=== PATIENT | male | born 1950 | race Caucasian/White ===

== ENCOUNTER 2017-01-24 12:42 | Inpatient (IN) | payer MEDICARE, MEDICAID ==
[~2017-01-24] VITALS: Ht 180.3 cm; Wt 122.5 kg
--- NOTE | ~2017-01-24 | WRIGHTHP ---
[place], [place] PATIENT HISTORY AND PHYSICAL EXAM NAME[id number] #: [id number] ROOM: 315 DOCTOR: SUKUMAR CAMILO MD BIRTHDATE: [birth year] DOS: 01/25/2017 CHIEF COMPLAINT: "What the hell is going on here, you know there is something funny here, I need to get the hell out of here." HISTORY OF PRESENT ILLNESS: This is a 66-year-old white male who was sent here on involuntary basis from [place], [place]. The patient apparently wound up in the [facility] there and was found to be acutely delusional and very agitated. He was yelling and screaming at staff, stating that people have deliberately conspired against him. They have hidden his money and are attempting to hurt him. Since his admission here, he has been exhibiting similar behavior. He is very volatile and on edge. He has been demanding to be let out of the hospital, he has been very suspicious of everybody and refusing medications. He did take his medications and then subsequently spit them out. Nurses did have to intervene and reattempt to medicate him. Due to the significant amount by paranoia and mood lability, he is to be detained here to rule out any organic factors, to stabilize on medication, to engage in individual and jimenez milieu activity, and return to at least restrictive environment when psychiatrically stable. PAST MEDICAL HISTORY: Remarkable for hypertension, hyperlipidemia, diabetes, coronary artery disease, hypothyroidism, and a history of several myocardial infarctions. MENTAL STATUS: The patient is alert and oriented to person, place, and very approximate to time. Mood is very labile. Affect is angry and irritable. He is extremely paranoid and delusional. There does not seem to be the presence of auditory or visual hallucinations; however, he is so guarded and so uncooperative, it is very difficult to obtain a significant mental status due to his lack of cooperation. He does seem to process information relatively well and his memory does seem to be relatively intact. DIAGNOSIS: Schizoaffective disorder. PLAN: I will discontinue his Remeron. I have already discontinued Wellbutrin. My fear is that any of these antidepressants are fueling some of his manic type behavior. I started him on Latuda 40 mg at bedtime. I will increase this to 80 mg at bedtime and augment with Invega 6 mg in the a.m. At this point in time, the severity of his psychosis is such that I feel justified in utilizing 2 antipsychotics. Given the fact that he is being episodically noncompliant with his medication, I may need to discontinue the Latuda and ultimately switch to Invega Sustenna to improve compliance. We will attempt at best to engage him in individual and jimenez milieu activity and then determine the least restrictive environment to discharge him when stable. [place], [place] PATIENT HISTORY AND PHYSICAL EXAM NAME: LIZBETH VELÁZQUEZ UNIT #: [id number] ROOM: [facility] DOCTOR: SUKUMAR CAMILO MD BIRTHDATE: [birth year] SUKUMAR CAMILO MD CM:HISPHYS:PATIENT HISTORY AND PHYSICAL EXAMINATION 5 SUKUMAR CAMILO MD 01/25/17 0843 interface
--- NOTE | ~2017-01-24 | CON ---
[place], [place] REPORT OF CONSULTATION NAME: LIZBETH VELÁZQUEZ [facility] #: [id number] UNIT #: [id number] ROOM: 315 DOCTOR: ZARINA ALVARADO ED.D (LEATHA) BIRTHDATE: [birth year] DOS: HISTORY OF PRESENT ILLNESS: The patient is a 66-year-old male referred by Dr. Taylor for competency evaluation. At the present time, this patient is on the Behavioral Health Unit at [facility]. He is single and has never been and presently lives alone in [place], [place]. His mother is still living and he also has a sister who is quite involved in his care. Unfortunately, his mother is 84 years old and is having difficulty with the patient . This patient's medical history is pertinent for delusional disorder, hypertension, diabetes mellitus, coronary artery disease, hypothyroidism, schizoaffective disorder and intellectual disability. His medications include Latuda, insulin, Invega, Synthroid, Plavix, metoprolol, Geodon, Rozerem and Ativan. He denies any substance abuse issues. This patient was awake, alert and oriented to person and place. He was not oriented to time, however. He denies any suicidal ideation or plan. His short and long-term memory are both mildly impaired. His insight, judgment and concentration are very poor. This patient was referred for competency evaluation. At the present time, I believe this patient is not really competent to make informed healthcare decisions or understand the risks and benefits of treatment. He apparently had been living alone with some case management services, but he returns. The case management services ____ when they came to his home. He was not taking his medications and his medical condition was quite precarious. It was dangerous for him to live alone. He does not understand that he is unable to take care of his needs and is not administering his medications appropriately. In my opinion, this patient does need a guardianship established, although his mother rather does have power of health care attorney for healthcare, but the patient refuses any intervention. DIAGNOSES: 1. Schizoaffective disorder. 2. Intellectual disability -- moderate. 3. 18.0 (F 72). Thank you very much for this consult. ZARINA WALKER, ED.D CM:CONSTR:REPORT OF CONSULTATION 1150 01/31/17 2526 interface SUKUMAR TAYLOR MD
--- NOTE | ~2017-01-24 | PR ---
[place], [place] PROGRESS NOTE NAME: [id number] UN[facility] #: [id number] ROOM: 315 DOCTOR: SUKUMAR CAMILO MD BIRTHDATE: [birth year] DOS: 01/29/2017 CHIEF COMPLAINT: "I didn't sleep last night, I tossed and turned." SUMMARY OF THE VISIT: The patient was interviewed in his room as he rested quietly in bed. He was bright and pleasant this morning with me and engaged readily. He smiled and reported that he is still not sleeping and that this is a source of concerned for him. He has trouble falling asleep and staying asleep and tends to toss and turn throughout the night. Mood seems to be stabilizing and that he does seem to be much more pleasant and cooperative and the mood lability and angry that were so evident seem to be dissipating. He is tolerating the combination of the Invega and Latuda well. I am going to maintain the two antipsychotics at this point given the extreme mood lability and agitation that he exhibited early on. I may ultimately taper and discontinue one, but for now we will maintain both. I see no extrapyramidal symptoms, tardive dyskinesia or any other side effects from the medicines themselves. MENTAL STATUS: He is alert and oriented with some time gaps. Mood does seem to be trending towards euthymia. Affect is more appropriate. There are no symptoms of moisés or hypomania. There are no voiced paranoia, delusions or other psychotic symptoms. Memory has mild gaps. PLAN: Given his sensitivity to antidepressants, I will go ahead and order him Rozerem as a sleep aid. I may have to utilize something a little stronger like Ambien, but we will start with this and monitor, engage in individual and jimenez milieu activity, returning to the least restrictive environment when psychiatrically stable. SUKUMAR CAMILO MD CM:PNTRANS [id number] SUKUMAR CAMILO MD 01/29/17 1242 interface
--- NOTE | ~2017-01-24 | PR ---
[place], [place] PROGRESS NOTE NAME: [facility]Z [id number] UN[facility] #: [id number] ROOM: 315 DOCTOR: SUKUMAR CAMILO MD BIRTHDATE: [birth year] DOS: 01/26/2017 CHIEF COMPLAINT: "I didn't sleep too well last night, is it time for breakfast?" SUMMARY OF THE VISIT: The patient was interviewed as he rested quietly in bed with the IV infusing in his arm. The patient engaged readily in conversation this morning, which is in neal contrast to yesterday when he was very volatile and paranoid. He was pleasant and bright upon approach, reporting that he did have trouble sleeping, both difficulty falling asleep and sleep continuity disturbance. He did state, however, that he woke up hungry and is ready to start the day. He was much more compliant and engaging. There was no agitation. There was no mood lability and there was no voiced paranoia this morning. Nurses report he has been compliant with his psychotropic regimen. I am not seeing any somnolence, sedation, extrapyramidal symptoms or tardive dyskinesia. MENTAL STATUS EXAMINATION: This morning, he is alert and oriented to person, place, I did not fully test time. Mood does seem to be trending towards euthymia. Affect is more appropriate. There is no symptom suggestive of hypomania or moisés. There are no overt auditory or visual hallucinations. No delusions were voiced. No paranoia seems present. Memory seems relatively intact. PLAN: I will maintain his psychotropic regimen that includes Latuda 80 mg at bedtime and Invega 6 mg in the morning. Screening examinations revealed him to have a low vitamin D level of 20.9. He is already receiving vitamin D 400 international units daily. I will discontinue this in lieu of vitamin D 50,000 international units weekly. We will engage in individual and jimenez milieu activity. We will explore possible placement options for him returning to the least restrictive environment when psychiatrically stable. SUKUMAR CAMILO MD CM:PNTRANS SUKUMAR CAMILO MD 01/26/1733 interface
--- NOTE | ~2017-01-24 | PR ---
[place], [place] PROGRESS NOTE NAME: [id number] #: [id number] ROOM: 315 DOCTOR: SUKUMAR CAMILO MD BIRTHDATE: [birth year] DOS: 01/30/2017 CHIEF COMPLAINT: "Yes, I think I did sleep better, I'm a little tired this morning though." SUMMARY OF THE VISIT: The patient was interviewed as he rested quietly in bed. He reports that he slept better through the night, did get up and have breakfast and decided to lay back down now. He was in a pleasant mood and joked with me and smiled. He is fixated, however, ongoing home and it is unclear if this is the best tract for him given the fact that he was found in conditions. He seems to be tolerating the medicines well other than some mild morning somnolence. MENTAL STATUS EXAMINATION: There is a definite trend in improvement. He is much more euthymic and much more pleasant. He engages readily in conversation, is spontaneously and even able to joke. There is no hypomania or moisés. There are no auditory or visual hallucinations noted. Short-term memory has mild gaps, otherwise he is intact. PLAN: I will maintain the current psychotropic regimen. I will renew his Ativan in case he requires it. We will continue to explore alternative placements, discharging him when stable. SUKUMAR CAMILO MD CM:PNTRANS [id number] SUKUMAR CAMILO MD 01/30/17 1407 interface
--- NOTE | 2017-01-24 16:42 | NUR ---
CALL PLACED TO [facility] AT [phone] TO VERIFY MEDICATION LIST AT THIS TIME.
--- NOTE | 2017-01-24 16:43 | NUR ---
SUKHDEV AT [facility] DRUG [facility] THEY WILL FAX MED LIST TO THE UNIT.
--- NOTE | 2017-01-24 17:00 | NUR ---
HOME MEDICATION LIST REVIEWED WITH DR. CAMILO VIA TELEPHONE, NEW ORDERS RECIEVED AND VERIFIED.
[2017-01-24 17:07] VITALS: BP 138/71
[2017-01-24] MEDS ORDERED: WELLBUTRIN XL300 MG PO (17:12)
[2017-01-24] MEDS ORDERED: TRAZODONE50 MG PO (17:13)
[2017-01-24] MEDS ORDERED: TRAD5TAB1 PO (17:13)
[2017-01-24] MEDS ORDERED: VITAMIN D2400 UNIT PO (17:13)
[2017-01-24] MEDS ORDERED: PLAVIX75 M1 PO (17:14)
[2017-01-24] MEDS ORDERED: METFORMIN500 MG PO (17:15)
[2017-01-24] MEDS ORDERED: POLY-IRON 150150 MG PO (17:15)
[2017-01-24] MEDS ORDERED: SEROQUEL25 MG PO (17:16)
[2017-01-24] MEDS ORDERED: LOPRESSOR100 M1 PO (17:16)
[2017-01-24] MEDS ORDERED: LIPITOR80 MG PO (17:16)
[2017-01-24] MEDS ORDERED: LEVOTHYROXINE100 MC1 PO (17:17)
--- NOTE | 2017-01-24 19:06 | NUR ---
LIZBETH VELÁZQUEZ a 66 year old M admitted via stretcher from the ADMITTING as a emergency 72 hr. hold admission. Arrived on unit at . ALLERGIES: . Vital signs are: 97.6-80-18 138/71 The client signed the following forms with stated understanding: Authorization For The Release of Medical Information, Clothing List, Consent and Release Forms/Receipt of Rights, Acknowledgement of Advance Directive Information, Behavioral Health Consent Form, and Informed Consent of Medications. [facility] A search was conducted and hazardous articles were removed. Client was oriented to the unit. AFNY JAMA
--- NOTE | 2017-01-24 19:08 | NUR ---
Dr. Culver was notified of consultation @ Hospitalist #1 on this date @ this time. Consultation is for medical management.
--- NOTE | 2017-01-24 20:11 | NUR ---
DR AUSTIN ON UNIT TO SEE PT FOR MEDICAL CONSULT,
--- NOTE | 2017-01-24 22:00 | NUR ---
REFUSED VITAL SIGNS & HS SNACK. MOOD IS LABILE RANGING FROM IRRITABLE & SARCASTIC WITH PROFANITY & NAME CALLING TO VERY ELATED WITH INAPPROPRIATE LAUGHTER. QUESTIONABLE AUDITORY HALLUCINATIONS. PT WOULD NOT ADMIT OR DENY BUT RESPONDED SARCASTICALLY. PARANOID & GRANDIOSE DELUSIONS PRESENT & PT STATED HE IS WITH THE SECRET SERVICE & WE ARE TRYING TO FIND OUT INFORMATION FROM HIM. HAS BEEN COMPLIANT WITH HS MEDS BUT MOUTH CHECKS WERE COMPLETED PT SPIT ONE IN HIS HAND & STATED THE WATER TASTES FUNNY & IS POISONED.
--- NOTE | 2017-01-25 06:19 | NUR ---
PT HAS BEEN OBSERVED ON Q 15 MIN CHECKS & HAS SLEPT QUIETLY THROUGHOUT THE SHIFT PAST 2200 WITH 1 BRIEF AWAKENING TO GO TO THE BATHROOM.
--- NOTE | 2017-01-25 07:00 | NUR ---
PT VULGAR WITH STAFF THIS AM WITH NAME CALLING. POSTURING AT STAFF WITH FISTS CLENCHED & YELLING "I'M FROM [facility]".
[2017-01-25 07:34] LABS: BASO # 0.1 10*3/uL (0.0-0.1); EOS # 0.6 10*3/uL (0.0-0.4); EOS % 5.6 % (1.0-4.0); HEMATOCRIT 45.3 % (42.0-52.0); HEMOGLOBIN 15.2 g/dl (14.0-18.0); LYMPH # 2.6 10*3/uL (1.3-4.4); LYMPH % 26.3 % (27.0-41.0); MEAN CELL VOLUME 90.4 fl (80.0-94.0); MEAN CORPUSCULAR HGB 30.3 pg (27.0-31.0); MEAN CORPUSCULAR HGB CONC 33.6 g/dl (33.0-37.0); MEAN PLATELET VOLUME 10.1 fl (9.6-12.3); MONO % 10.3 % (3.0-9.0); NEUT # 5.6 10*3/uL (2.3-7.9); NEUT % 56.5 % (47.0-73.0); PLATELET COUNT AUTOMATED 230 10*3/uL (130-400); RED BLOOD COUNT 5.01 10*6/uL (4.50-5.90); RED CELL DISTRI WIDTH 12.3 % (0-14.5)
[2017-01-25 07:50] LABS: ALBUMIN 2.7 gm/dl (3.1-4.5); CREATININE 2.17 mg/dL (0.70-1.30); POTASSIUM 3.7 mmol/L (3.5-5.1); TOTAL PROTEIN 6.2 gm/dL (6.4-8.2)
[2017-01-25 07:58] LABS: THYROID STIM HORMONE (HS) 15.3 uIU/ml (0.358-4.75)
--- NOTE | 2017-01-25 08:59 | NUR ---
DR. HAMILTON NOTIFIED OF ABNORMAL LABS VIA PHONE.
[2017-01-25 09:26] VITALS: BP 125/76
--- NOTE | 2017-01-25 09:41 | NUR ---
RETURN CALL PLACED TO DR. HAMILTON, MADE AWARE PT HAS DOCUMENTED DX OF CKD STAGE 3 FROM HOSPITAL RECORDS FROM [facility] IN [place]. REVIEWED LAB RESULTS OF CR 1.98 ON 01/21/17 AND CR 1.74 ON 01/24/17, DR. HAMILTON STATES TO CANCEL IVF BOLUS, URINE STUDIES, RENAL ULTRASOUND, AND PHYSICIANS CONSULT FOR DR. BURCH. DR. HAMILTON STATES TO RUN IVF AT 80ML/HR CONTINUOUS. DR. HAMILTON HAD DISCONTINUED PT'S METFORMIN AND TRADJENTA, DR. PERKINS STATES TO KEEP THESE MEDICAIONS DISCONTINUED AND TO PLACE PT ON HOSPITALIST SLIDING SCALE NUMBER 1 WITH AC/HS BLOOD SUGAR CHECKS. ORDERS REPEATED BACK AND VERIFIED. WITNESSED BY MOLLY NAVARRO.
[2017-01-25 09:44] LABS: VITAMIN D, 25-HYDROXY 20.9 ng/mL (30-100)
--- NOTE | 2017-01-25 10:01 | NUR ---
CECILIO CRUZ FROM 4TH HERE AND STARTED IV 22G IN LEFT FA.
--- NOTE | 2017-01-25 13:38 | NUR ---
Patient refused to participate during group. Stated "I don't feel good." Patient encouraged to attend group this afternoon.
--- NOTE | 2017-01-25 15:39 | NUR ---
PT did not attend RT group/trivia this afternoon. PT was in his room and refused
--- NOTE | 2017-01-25 19:00 | NUR ---
SHIFT CHART CHECK COMPLETED.
[2017-01-25 20:00] VITALS: BP 136/76
--- NOTE | 2017-01-25 21:51 | NUR ---
TREATMENT TEAM WAS HELD TO DISCUSS CARE WITHTHE FOLLOWING: DR. CAMILO, RNs, AT, SW, AND MEDICAL STUDENT. DR CAMILO REQUESTING BETTER HISTORY. SW WILL LOOK INTO THIS AND CALL FAMILY.
--- NOTE | 2017-01-25 22:01 | NUR ---
ISIS RECEIVED COY OF ERIN FUENTES. ISIS GAVE NURSE GUERLINE COPY OF ERIN PAPERS. ISIS LET LISET MOTHER KNOW PAPERS WEER RECEIVED.
--- NOTE | 2017-01-25 23:00 | NUR ---
NSS 0.9% INFUSING IN IV SHORT CATHETER AT 80ML/HR WITHOUT DIFFICULTY. IV SITE WITH NO REDNESS, ELEVATED TEMPERATURE, OR EDEMA. LAB WORK TO BE DRAWN IN AM
--- NOTE | 2017-01-25 23:58 | NUR ---
URINE SPECIMEN OBTAINED. URINE OBTAINED VIA CLEAN CATCH. URINE YELLOW WITH OUTPUT OF 250ML. NO COMPLAINTS OF DYSURIA
[2017-01-26 00:46] LABS: BILIRUBIN NEGATIVE (NEGATIVE); BLOOD NEGATIVE (NEGATIVE); CLARITY CLEAR (CLEAR); COLOR YELLOW (YELLOW); GLUCOSE 1+ (NEGATIVE); KETONE NEGATIVE (NEGATIVE); LEUKO ESTERASE 2+ (NEGATIVE); NITRITE NEGATIVE (NEGATIVE); UROBILINOGEN 0.2 E.U./dl (0.2-1.0)
[2017-01-26 01:04] LABS: WBC 16-20 wbc/hpf (0-5)
[2017-01-26 01:05] LABS: BACTERIA TRACE
--- NOTE | 2017-01-26 04:11 | NUR ---
24 HR chart check completed.
--- NOTE | 2017-01-26 04:13 | NUR ---
B: AGITATION/CONFUSION I: 1:1, THERAPEUTIC COMMUNICATION, GOAL ORIENTED R: PATIENT WISHES THE DOG WOULD BE QUIET P: HELP TO FIND COPING SKILLS TO DECREASE AGITATION, REORIENT TO PERSON, PLACE, TIME, AND SITUATION, PARTICIPATE IN GROUPS
--- NOTE | 2017-01-26 06:39 | NUR ---
Q 15 MINUTE CHECKS MAINTAINED. PATIENT SLEPT 4 HOURS THROUGHOUT SHIFT
[2017-01-26 07:53] VITALS: BP 135/76
[2017-01-26 07:54] LABS: BASO # 0.1 10*3/uL (0.0-0.1); BASO % 0.9 % (0.0-1.0); EOS # 0.5 10*3/uL (0.0-0.4); EOS % 5.2 % (1.0-4.0); HEMATOCRIT 40.4 % (42.0-52.0); LYMPH # 2.9 10*3/uL (1.3-4.4); LYMPH % 30.5 % (27.0-41.0); MEAN CELL VOLUME 90.2 fl (80.0-94.0); MEAN CORPUSCULAR HGB 31.3 pg (27.0-31.0); MEAN CORPUSCULAR HGB CONC 34.7 g/dl (33.0-37.0); MEAN PLATELET VOLUME 10.4 fl (9.6-12.3); MONO # 0.8 10*3/uL (0.1-1.0); MONO % 8.3 % (3.0-9.0); NEUT # 5.1 10*3/uL (2.3-7.9); NEUT % 54.6 % (47.0-73.0); PLATELET COUNT AUTOMATED 230 10*3/uL (130-400); RED BLOOD COUNT 4.48 10*6/uL (4.50-5.90); RED CELL DISTRI WIDTH 12.6 % (0-14.5); WHITE BLOOD COUNT 9.4 10*3/uL (4.8-10.8)
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
[2017-01-26 08:26] LABS: CREATININE 1.83 mg/dL (0.70-1.30); MAGNESIUM 1.3 mg/dL (1.5-2.1); PHOSPHOROUS 2.6 mg/dL (2.5-4.9); POTASSIUM 3.3 mmol/L (3.5-5.1)
--- NOTE | 2017-01-26 09:39 | NUR ---
Complex Care Nurse Note: Kevin from [facility], called to give us their phone and fax numbers so that patient can resume services with them upon discharge. . He was receiving daily nursing care every evening for blood sugars, but can receive more visits and also passport through their company.
--- NOTE | 2017-01-26 18:09 | NUR ---
PT IV INFILTRATED. IV REMOVED. NURSE EVALUTING PT FOR NEW SITE. PT REFUSED. ICU NURSE UP ON THE FLOOR TO ASSESS PT IV SITE
--- NOTE | 2017-01-26 19:17 | NUR ---
TREATMENT TEAM WAS HELD TO DISCUSS CARE WITHTHE FOLLOWING: DR. CAMILO. YUKO, RNs, AND MEDICAL STUDENT. DR. CAMILO RECOMENDED PALCEMENT FOR REHAB THEN ASSISTED LIVING. Yuko INFORMED DR THAT FAMILY AGREED WITH PLACEMENT AND WOULD LIKE PT TO EVETUALLY GOTO ASSISTED LIVING IN [facility]. . YUKO WILL COMPLETE PASRR.
--- NOTE | 2017-01-26 19:19 | NUR ---
ISIS COMPLETED ASSESSMENT WITH [facility]. FAMILY WANTS PT PLACED IN ASSISTD LIVING. ISIS EPLAINED THAT ASSISTED LIVING PLACEMENT TAKES TOO LONG AND PT WOULD GO TO SKILLED CARE THEN ASSISTED LIVING. FAMILY AGREED WITH DISCHARGE PLAN. FAMILY WOULD LIKE PT TO SHAVE [place] AND GET A HAIR CUT. SW WITH TALK WITH PT ABOUT CLEANING UP HIS PERSONAL APPERANCE.
--- NOTE | 2017-01-26 19:21 | NUR ---
SW COMPLETED PASRR AND ASKED AGRICULTURAL AGENT TO FAX IT TO [facility]. SW GAVE REFERRALS FOR UNIT COORDIANTOR TO FAX TO FACILITIES.
[2017-01-26 19:37] VITALS: BP 107/49
--- NOTE | 2017-01-26 20:00 | NUR ---
BLOOD PRESSURE RESULT OF 102/49. RECHECKED [facility] BLOOD PRESSURE WITH RESULT OF 120/68
--- NOTE | 2017-01-26 22:10 | NUR ---
CLIENT MEDICATION COMPLAINT. NSS 0.9% INFUSING AT 80ML/HR IN RIGHT WRIST SHORT PERIPHERAL CATHERTER WITHOUT DIFFICULTY. IV SITE WITH NO EDEMA, INCREASED TEMPERATURE, OR REDDNESS AT IV SITE. CONTINUES ON BACTRIM SS WITH NO COMPLAINTS OF DYSURIA.
--- NOTE | 2017-01-27 02:07 | NUR ---
24 HR chart check completed.
--- NOTE | 2017-01-27 04:46 | NUR ---
B: CONFUSION/AGITATION I: THERAPEUTIC COMMUNICATION, GOAL ORIENTED, 1:1 R: PATIENT GETTING UPSET ABOUT INSULIN AND COVERAGE P: MEDICATION COMPLIANCE AND REVIEWED SLIDING SCALE COVERAGE WITH PATIENT, HELP TO FIND COPING SKILLS TO DECREASE AGITATION
--- NOTE | 2017-01-27 06:14 | NUR ---
Q 15 MINUTE CHECKS MAINTAINED. SLEPT >8 HOURS THROUGOUT SHIFT
[2017-01-27 08:03] VITALS: BP 138/78
--- NOTE | 2017-01-27 08:24 | NUR ---
PHYSICAL THERAPY Patient evaluated on 3, full evaluation to follow. Continue with PT as per plan of care with fall, unit three and decreased safety/balance precautions. Assisted living versus SNF for impaired mobility in order to return to (I) PLOF. PAtient is moderate complexity via chart review, tests and evaluation: [id number]. Thank you for this referral. Kenzie Luz,PT
--- NOTE | 2017-01-27 11:39 | NUR ---
PT refused to attend RT Group/excerse this morning. Tried to encourage PT but PT just continued to refuse
--- NOTE | 2017-01-27 15:35 | NUR ---
TREATMENT TEAM WAS HELD WITH THE FOLLOWING TO DISCUSS CARE: DR. CAMILO, MEDICAL STUDENT, RN, AT, SW. SW SUBMITTED PASRR AND REFERRALS WERE MADE.
--- NOTE | 2017-01-27 15:51 | NUR ---
PT was in the same room as RT Group/Riddles,Choices but did not participate. encouraged PT numerous times throughout group to join but PT continually refused.
[2017-01-27 20:24] VITALS: BP 135/63
--- NOTE | 2017-01-28 04:05 | NUR ---
DR. HINTON MADE AWARE OF PT NOT HAVING LAB WORK REPEATED SINCE 01/26/17 WITH IV 0.9% NS RUNNING 80 ML HR AND 5TH BAG COMPLETE. ORDERS OBTAINED TO REPEAT CBC AND CMP AND TO HOLD IVF UNTIL LABS COULD BE REVIEWED. ORDERS VERIFIED BY SECOND NURSE SHAHAB SNIDER RN.
--- NOTE | 2017-01-28 05:38 | NUR ---
PT AWOKE THROUGHOUT NIGHT ON MULTIPLE OCASSIONS FOR URINATION. SLEPT 6 HOURS. IV SITE TO RIGHT WRIST ASYMPTOMATIC. IV INFUSION ON HOLD AT 0400 PER . SITE SECURED WITH TAPE. PT MEDICATION COMPLIANT WITH OUT COAXING. CONTINUES TO BE SUSPICIOUS AND PARINOID AT TIMES. REPORT BUILT WITH PT BY 1:1. SEE FLOW SHEET FOR SPECIFIC MONITORING.
[2017-01-28 07:30] LABS: BASO # 0.1 10*3/uL (0.0-0.1); EOS # 0.5 10*3/uL (0.0-0.4); EOS % 6.2 % (1.0-4.0); HEMATOCRIT 41.7 % (42.0-52.0); LYMPH # 2.3 10*3/uL (1.3-4.4); LYMPH % 30.4 % (27.0-41.0); MEAN CELL VOLUME 90.5 fl (80.0-94.0); MEAN CORPUSCULAR HGB 30.4 pg (27.0-31.0); MEAN CORPUSCULAR HGB CONC 33.6 g/dl (33.0-37.0); MEAN PLATELET VOLUME 10.6 fl (9.6-12.3); MONO # 0.8 10*3/uL (0.1-1.0); MONO % 10.2 % (3.0-9.0); NEUT # 3.9 10*3/uL (2.3-7.9); NEUT % 51.7 % (47.0-73.0); PLATELET COUNT AUTOMATED 207 10*3/uL (130-400); RED BLOOD COUNT 4.61 10*6/uL (4.50-5.90); RED CELL DISTRI WIDTH 12.5 % (0-14.5); WHITE BLOOD COUNT 7.6 10*3/uL (4.8-10.8)
[2017-01-28 07:45] LABS: ALBUMIN 2.6 gm/dl (3.1-4.5); CREATININE 1.63 mg/dL (0.70-1.30); POTASSIUM 3.4 mmol/L (3.5-5.1)
[2017-01-28 08:05] VITALS: BP 135/84
--- NOTE | 2017-01-28 09:37 | NUR ---
TREATMENT TEAM WAS NELL TO DISCUSS CARE WITH THE FOLLOWING: DR. CAMILO, NURSE PRACTIONER, MEDICAL STUDENT, RN, AT, AND SW. PENDING DISCHARGE FOR NEXT WEEK. SW INFORMED DR. CAMILO OF MOTHER/POA'S CONCERN ABOUT PLACING PT AND HIM NOT STAYING AT FACILITY. DR. CAMILO ORDERED CONSULT FOR DR. ALVARADO FOR EXPERT EVALUATION FOR GUARDIANSHIP.
--- NOTE | 2017-01-28 10:19 | NUR ---
MADE AWARE OF CONSULT FOR COMPETENCY FOR TUESDAY.
--- NOTE | 2017-01-28 11:04 | NUR ---
PHYSICAL THERAPY Mehrdad seen this AM 1:1 for his therapy gait. Pt was supine in bed said he would try. All transfers were CGA X 1, no LOB. Gait total 300' X 1, CGA X 1, with cueing for his gait safety, balance, and turns. Pt back sitting at bedside. Followed by act Ex to bilateral LE of marching, LAQ's, and ankle pumps working in 20 reps each, treatment time 26 min. SEAN THEODORE BENCH WORKER.
--- NOTE | 2017-01-28 11:35 | NUR ---
PT refused to join RT Group/Discussion this morning stating "I already know how to milk a cow." when staff explained we were not milking cows today and that he needed to not stay in bed all the time and encouraged PT to again come to group. PT stated he could not come to group because he was resting up from having to drag the IV pole around with him all day yesterday and was going to stay in bed
--- NOTE | 2017-01-28 15:03 | NUR ---
PT did not attend RT Group/Games this afternoon. Tried encouraging PT to come to group. Explained to PT laying in bed all the time will not help him get better. PT replied he needed rest and he was fine.
--- NOTE | 2017-01-28 15:37 | NUR ---
PT refused to do assessment. Explained to PT it was just a few questions for Activities. PT stated no he didnt like answering questions
--- NOTE | 2017-01-28 17:52 | NUR ---
PATIENT IS ALERT AND VERBAL, ABLE TO MAKE NEEDS AND WANTS KNOWN TO STAFF. MOOD IS HOPELESS/HELPLESS WITH FLAT AFFECT. A/V HALLUCINATIONS QUESTIONABLE, INAPPROPRIATE SMILING HAS BEEN OBSERVED BY STAFF WHEN PATIENT IS ALONE IN ROOM. PT HAS BEEN ISOLATIVE MOST OF THE SHIFT WITH LIMITED PEER INTERACTIONS. HYGIENE IS POOR, PT REFUSED A SHOWER AFTER MULTIPLE ATTEMPTS. MEDICATION COMPLIANT WITHOUT DIFFICULTY. DENIES ANY SI/HI. DELUSIONS ABOUT WAITING FOR "MAIL TO BE DELIVERED TO ME." REALITY PRESENTED WITH LITTLE EFFECT. HAS BEEN CALM AND COOPERATIVE THIS SHIFT. WILL CONTINUE Q15 MIN CHECKS, ENCOURAGING PATIENT TO ATTEND AND PARTICIPATE IN GROUP, PRESENT REALITY NEEDED. APPETITE GOOD FOR MEALS, ATE 100% OF ALL. TAKING FLUIDS WELL.
[2017-01-28 20:00] VITALS: BP 124/79
--- NOTE | 2017-01-29 04:14 | NUR ---
24 HR chart check completed.
--- NOTE | 2017-01-29 06:04 | NUR ---
PT SLEPT GREATER THAN 8 HOURS. NO S/S OF DISTRESS NOTED. NO C/O PAIN. MEDICATION COMPLIANT THIS SHIFT. SEE [facility] FLOW SHEET FOR SPECIFIC MONITORING. Q15 MINUTE SAFETY CHECKS MAINTAINED.
[2017-01-29 06:55] LABS: BASO # 0.1 10*3/uL (0.0-0.1); EOS # 0.5 10*3/uL (0.0-0.4); EOS % 6.4 % (1.0-4.0); HEMOGLOBIN 14.3 g/dl (14.0-18.0); LYMPH # 2.2 10*3/uL (1.3-4.4); LYMPH % 28.7 % (27.0-41.0); MEAN CELL VOLUME 89.6 fl (80.0-94.0); MEAN CORPUSCULAR HGB 30.5 pg (27.0-31.0); MEAN PLATELET VOLUME 10.4 fl (9.6-12.3); MONO # 0.7 10*3/uL (0.1-1.0); NEUT # 4.1 10*3/uL (2.3-7.9); NEUT % 54.4 % (47.0-73.0); PLATELET COUNT AUTOMATED 209 10*3/uL (130-400); RED BLOOD COUNT 4.69 10*6/uL (4.50-5.90); RED CELL DISTRI WIDTH 12.5 % (0-14.5); WHITE BLOOD COUNT 7.6 10*3/uL (4.8-10.8)
[2017-01-29 07:28] LABS: ALBUMIN 2.7 gm/dl (3.1-4.5); CREATININE 1.75 mg/dL (0.70-1.30); MAGNESIUM 1.3 mg/dL (1.5-2.1); POTASSIUM 3.7 mmol/L (3.5-5.1)
[2017-01-29 08:05] VITALS: BP 131/73
--- NOTE | 2017-01-29 09:44 | NUR ---
DR. VALDEZ NOTIFIED OF ABNORMAL LABS. STATES TO HOLD AM ORAL DOSE OF MAGNESIUM AND STATES SHE WILL ENTER ORDERS FOR IV MAGNESIUM.
--- NOTE | 2017-01-29 10:45 | NUR ---
DR. CAMILO HERE TO SEE PT AT THIS TIME.
--- NOTE | 2017-01-29 11:36 | NUR ---
IV START UNSUCCESSFUL X 2 ATTMEPTS BY THIS NURSE AND KRISHNA HERNANDES. CALL PLACED TO NURSING INTERNAL AUDITOR FLORENCE TO MAKE AWARE, STATES SHE WILL SEND SOMEONE TO ASSIST.
--- NOTE | 2017-01-29 14:25 | NUR ---
DR. VALDEZ NOTIFIED OF DIFFICULTY OBTAINING IV SITE, NOTIFIED [facility] STAFF AWAITING BRANCH STORE MANAGER ASSISTANCE FOR IV START. NNO RECIEVED AT THIS TIME, STATES TO NOTIFY IF WE ARE UNABLE TO GAIN IV ACCESS AFTER NEXT ATTEMPT FOR NEW ORDERS.
--- NOTE | 2017-01-29 14:48 | NUR ---
IV STARTED AT THIS TIME BY WAREHOUSE EXAMINER, 22G IN LEFT ARM. PT TOLERATED WELL.
--- NOTE | 2017-01-29 18:21 | NUR ---
PT IS ALERT AND ORIENTED TO PERSON, UNABLE TO ACCURATELY ASSESS MENTATION FURTHER WHEN THIS NURSE QUESTIONS PT IN REGARD TO PLACE, TIME AND SITUATION PT STATES "[employer]" AND REFUSES TO [place]. SOME MEMORY GAPS NOTED. RESPIRATIONS EASY ON ROOM AIR. MOOD IS STABLE WITH FLAT AFFECT. SPEECH IS WNL AND COHERENT. PT DENIES HALLUCINATIONS, HOWEVER EYE DARTING NOTED BY THIS NURSE DURING MEDICATION PASS. PT DENIES SI/HI. MEDICATION COMPLIANT WITHOUT DIFFICULTY. IV MEDICATIONS GIVEN ORDERED TO IV SITE IN LEFT ARM WITHOUT DIFFICULTY. IV SITE ASYMPTOMATIC. PT IS AMBULATORY WITH STEADY GAIT, INDEPENDENT WITH ADLS, REFUSED SHOWER DESPITE STAFF ENCOURAGEMENT. CONTINENT OF BOWEL AND BLADDER. PT UP TO NURSE'S STATION SEVERAL TIMES THROUGHOUT THE DAY FIXATED ON WHAT TIME THE MAIL IS COMING AND STATES "I HAVE A VINYL PACKAGE BEING DELIVERED FROM MY SISTER. SHE SAYS IT WAS DELIVERED TODAY AT 10:10." EXPLAINED TO PT IF SOMETHING HAD BEEN DELIVERED IT WOULD LIKELY BE BROUGHT THE UNIT ON TUESDAY WITH THE MAIL. PT CONTINUES TO ASK DIFFERENT STAFF MEMBERS THROUGHOUT THE DAY DESPITE REDIRECTION. PT ISOLATIVE TO ROOM EXCEPT FOR MEALS. NO DISTRESS NOTED. Q15 MIN SAFETY CHECKS MAINTAINED, REFER TO [facility] FLOWSHEET FOR SPECIFIC MONITORING.
--- NOTE | 2017-01-29 18:50 | NUR ---
SHIFT CHART CHECK COMPLETED.
[2017-01-29 20:23] VITALS: BP 124/70
--- NOTE | 2017-01-29 21:17 | NUR ---
HS BEDSIDE GLUCOSE 173
--- NOTE | 2017-01-29 21:17 | NUR ---
24 HR chart check completed.
--- NOTE | 2017-01-30 05:49 | NUR ---
PT HAS BEEN OBSERVED ON Q 15 MIN CHECKS & HAS SLEPT QUIETLY THROUGHOUT THE SHIFT PAST 2099.
--- NOTE | 2017-01-30 06:52 | NUR ---
AM BEDSIDE GLUCOSE 203
[2017-01-30 08:19] VITALS: BP 131/68
--- NOTE | 2017-01-30 13:08 | NUR ---
DR. ZHENG, DR. VALDEZ, AND DR. BASHIR HERE TO SEE PT AT THIS TIME.
[2017-01-30 14:14] LABS: CREATININE 1.93 mg/dL (0.70-1.30); MAGNESIUM 1.6 mg/dL (1.5-2.1); POTASSIUM 3.8 mmol/L (3.5-5.1)
--- NOTE | 2017-01-30 14:24 | NUR ---
DR. VALDEZ NOTIFIED OF LAB RESULTS FROM TODAY.
--- NOTE | 2017-01-30 16:51 | NUR ---
ENCOURAGED PT TO GET A SHOWER, PT REFUSED, EDUCATED PT THAT COMPLETING HIS ADLS ARE A PART OF TAKING CARE OF HIMSELF, ONLY MET WITH ANGER. INFORMED PT THAT HE HAD NOT SHOWERED IN MULTIPLE DAYS, MET WITH ANGER. ONE ON ONE COMPLETED REGUARDING SELF CARE AND HYGIENE. PT BECAME UPSET AND STARTED WALKING TOWARDS THE SHOWER STATING HE WOULD GET A SHOWER. PT WENT INTO SHOWER ROOM AFTER SET UP BY STAFF AND SHUT THE DOOR. UPON COMPLETION OF SHOWER, PT OBSERVED WALKING IN THE HALLWAY WITH DRY HAIR. CLOTHES CHANGED.
--- NOTE | 2017-01-30 18:58 | NUR ---
PT IS ALERT AND ORIENTED TO PERSON, PLACE, AND TIME. MEMORY APPEARS INTACT. RESPIRATIONS EASY ON ROOM AIR. MOOD IS STABLE FOR THE MAJORITY OF THE DAY, PT DID BECOME ANGRY/IRRITABLE WHEN APPROACHED BY STAFF ABOUT PERSONAL HYGIENE. AFFECT IS FLAT. SPEECH IS WNL AND COHERENT, ABLE TO MAKE NEEDS KNOWN. PT DENIES HALLUCINATIONS, NO RESPONSE TO INTERNAL STIMULI NOTED. PT DENIES SI/HI. NO DELUSIONS OR PARANOIA NOTED. PT CONTINUES TO BE ISOLATIVE TO ROOM. MEDICATION COMPLIANT WITHOUT DIFFICULTY. AMBULATORY WITH STEADY GAIT, CONTINENT OF BOWEL AND BLADDER, DISPLAYS GOOD APPETITE WITH ADEQUATE FLUID INTAKE. PT DID RELUCTANTLY AGREE TO GET IN THE SHOWER BUT STATED "I'LL DO IT. IT MIGHT TURN THESE OLD PEOPLE ON, BUT IT DOESN'T DO ANYTHING FOR ME." HOWEVER, AFTER SHOWER PT'S HAIR STILL DRY. IV HEP LOCK TO LEFT ARM C/D/I. NO DISTRESS NOTED. Q15 MIN SAFETY CHECKS MAINTAINED, REFER TO [facility] FLOWSHEET FOR SPECIFIC MONITORING.
--- NOTE | 2017-01-30 19:24 | NUR ---
SHIFT CHART CHECK COMPLETED.
[2017-01-30 20:00] VITALS: BP 110/64
--- NOTE | 2017-01-30 21:12 | NUR ---
HS BEDSIDE GLUCOSE 186
--- NOTE | 2017-01-30 22:11 | NUR ---
24 HR chart check completed.
--- NOTE | 2017-01-31 05:48 | NUR ---
PT HAS BEEN OBSERVED ON Q 15 MIN CHECKS & HAS SLEPT QUIETLY THROUGHOUT THE SHIFT PAST 2099.
--- NOTE | 2017-01-31 06:40 | NUR ---
AM BEDSIDE GLUCOSE 176
[2017-01-31 06:59] VITALS: BP 118/72
--- NOTE | 2017-01-31 09:46 | NUR ---
LEON MCDONNELL MEDICAL STAFF SERVICES COORDINATOR HERE TO SEE PT AT THIS TIME, UPDATE GIVEN, LABS REVIEWED.
--- NOTE | 2017-01-31 09:48 | NUR ---
DR. ALVARADO HERE TO SEE PT AT THIS TIME.
--- NOTE | 2017-01-31 10:33 | NUR ---
TREATMENT TEAM WAS HELD TO DISCUSS CARE WITH THE FOLLOWING: DR. CAMILO, RN, SW, AND AT. DR. CAMILO SAID DISCHARGE PENDING FOR TuesdayJanuary FOR RETURN TO [facility].
--- NOTE | 2017-01-31 10:36 | NUR ---
TREATMENT TEAM WAS HELD TO DISCUSS CARE WITHTHE FOLLOWING: DR. CAMILO, RN,AT, AND SW. SW DISCUSSED MOTHER LISET REQUESTING ASSESSMENT TO SEE IF PT NEEDED LEGALLY GUARDIAN DUE TO HER BEING AFRAID THAT PT WILL NOT STAY AT [place] OR [place] FACILITY. [facility] WAS SENT LAST WEEK. REFERRALS WERE MADE BY NO ONE HAS ACCEPTED. PT. SW WILL CHECK WITH FACILITIES AND SEND OUT MORE REFERRALS. DR. CAMILO ORDERED CONSULT WITH DR. ALVARADO.
--- NOTE | 2017-01-31 11:48 | NUR ---
PT did not attend RT Group/reminiscing this morning. PT absolutely refuses to join any group. PT "doesnt like thst stuff."
--- NOTE | 2017-01-31 13:07 | NUR ---
PHYSICAL THERAPY Pt seen this AM 1:1 for his therapy gait, said he would try. All transfers were MIN A X 1. Followed by gait 290' X 1, CGA X 1, with stop/start gait no LOB and verbal cueing for gait, turn safety, and one sitting rest Pt up in the day room at this time for his breakfast. SEAN THEODORE DRAMATIC CRITIC.
--- NOTE | 2017-01-31 15:45 | NUR ---
PT did not attend RT Group/Cards this afternoon. PT was in his room and AT spent a little time with him talking about joining group and explaining why he should not stay in his room or his bed all the time. But PT just stated he was fine and he didnt want to join in group then rolled over away from AT
--- NOTE | 2017-01-31 18:13 | NUR ---
PT IS ALERT AND ORIENTED TO PERSON, APPROX PLACE AND TIME, NOT TO SITUATION. RESPIRATIONS EASY ON ROOM AIR. MOOD IS LABILE, EASILY IRRITABLE AND HAS BEEN ANGRY/IRRITABLE IN PHONE CONVERSATIONS WITH FAMILY PER FAMILY REPORT. AFFECT IS FLAT. SPEECH IS WNL AND COHERENT, ABLE TO MAKE NEEDS KNOWN. MEDICATION COMPLIANT. HEP LOCK INTACT TO RIGHT ARM. DRESSING C/D/I. PT CONTINUES TO REFUSE TO SHOWER OR ATTEND TO ADLS DESPITE STAFF ENCOURAGEMENT AND OFFERS OF ASSISTANCE. AMBULATORY WITH STEADY GAIT. FEEDS SELF. GOOD APPETITE WITH ADEQUATE FLUID INTAKE. ISOLATIVE TO ROOM, DOES NOT PARTICIPATE IN GROUPS/ACTIVITIES, PT ENJOYS SITTING ALONE AND READING BOOKS/NEWSPAPERS. NO DISTRESS NOTED. Q15 MIN SAFETY CHECKS MAINTAINED, REFER TO [facility] FLOWSHEET FOR SPECIFIC MONITORING.
--- NOTE | 2017-01-31 18:43 | NUR ---
SHIFT CHART CHECK COMPLETED.
[2017-01-31 20:15] VITALS: BP 123/69
--- NOTE | 2017-01-31 20:44 | NUR ---
ISIS RECEIVED VM FROM HÉCTOR Nunez, [facility] ([phone]). SW RETURNED CALL AND LEFT VM ABOUT PT NEEDED AL WAIVER ASSESSMENT AND ASSISTANCE IN PLACING PT IN [place].AND MAYBE [facility] APPLICATION. LEFT PHONE NUMBER.
--- NOTE | 2017-02-01 03:51 | NUR ---
B: REFUSAL TO PREFORM ADL'S, SUSPICIOUS OF STAFF MUCH COAXING TO ADMINISTER MEDICATIONS. I: PT ENCOURAGED TO SHOWER REFUSING AT THIS TIME, PT EDUCATED ON MEDICATIONS. PT TAKING SPOON OFF OF NURSE AND INSPECTING EACH PILL. PT PROVIDED 1-1 AND ENCOURAGED TO COME TO HS SNACK AND GROUP. R: PT CONSUMED HS SNACK, MEDICATION COMPLIANT P: CONITNUE TO ENCOURAGE SELF CARE AND PERFORMANCE OF ADL WITH POSITIIVE REINFORCEMENT. PROVIDE 1-1, ENCOURAGE PARTICIPATION OF GROUP THERAPY
--- NOTE | 2017-02-01 04:34 | NUR ---
24 HR chart check completed.
--- NOTE | 2017-02-01 06:26 | NUR ---
PT SLEPT 8 HOURS. ANRGY AND IRRITABLE WITH STAFF. REFUSING SHOWER AND ALL ADLS'S . MEDICATION COMPLIANT HS BGM 170. 2 UNITS COVERAGE, 0600 BGM 141 NO COVERAGE NEEDED.
[2017-02-01 06:31] LABS: BASO # 0.1 10*3/uL (0.0-0.1); BASO % 1.2 % (0.0-1.0); EOS # 0.4 10*3/uL (0.0-0.4); EOS % 5.7 % (1.0-4.0); HEMATOCRIT 41.6 % (42.0-52.0); HEMOGLOBIN 14.4 g/dl (14.0-18.0); LYMPH # 2.4 10*3/uL (1.3-4.4); LYMPH % 30.9 % (27.0-41.0); MEAN CELL VOLUME 90.4 fl (80.0-94.0); MEAN CORPUSCULAR HGB 31.3 pg (27.0-31.0); MEAN CORPUSCULAR HGB CONC 34.6 g/dl (33.0-37.0); MEAN PLATELET VOLUME 10.7 fl (9.6-12.3); MONO # 0.7 10*3/uL (0.1-1.0); MONO % 9.6 % (3.0-9.0); NEUT % 51.9 % (47.0-73.0); PLATELET COUNT AUTOMATED 211 10*3/uL (130-400); RED CELL DISTRI WIDTH 12.4 % (0-14.5); WHITE BLOOD COUNT 7.7 10*3/uL (4.8-10.8)
[2017-02-01 07:03] LABS: ALBUMIN 2.9 gm/dl (3.1-4.5); CREATININE 1.94 mg/dL (0.70-1.30); POTASSIUM 3.4 mmol/L (3.5-5.1); TOTAL PROTEIN 6.4 gm/dL (6.4-8.2)
[2017-02-01 07:57] VITALS: BP 113/67
--- NOTE | 2017-02-01 08:20 | NUR ---
PHYSICAL THERAPY Isaiah seen this AM and having a better morning then yesterday. Pt was supine in bed and transfer supine/sit CGA X 1, sitting balance supervision X 1, X 4 min, sit/stand and standing balance while i changer his gown supervision X 1. Followed by gait total 320' and working in gait balance with gait backwards, right and left side stepping 360 turn with CGA X 1, with verbal cueing for balance safety, and having no LOB with this. Pt taken down to the day room for his breakfast at this time treatment time 14 min. SEAN THEODORE PERIOPERATIVE NURSE.
--- NOTE | 2017-02-01 13:22 | NUR ---
PT did not attend RT Group/Talking and Reminiscing this afternoon. PT refused stating he "didnt believe so." AT continued to encourage PT to attend but again PT refused and again stated "i dont believe so."
--- NOTE | 2017-02-01 13:55 | NUR ---
24 HR chart check completed. PT IS ALERT TO SELF, WITHDRAWN TO SELF, REFUSING ADL'S , DENIES SI/HI, PT TALKS TO SELF, LOOKS TO BE RESPONDING TO INTERNAL STIMULI, MED COMPLILANT, PT IV IS PATENT, UP AND STEADY, CONTINENT, CALM AND COOPORATIVE,
--- NOTE | 2017-02-01 14:22 | NUR ---
SWS left vm for Stephanie at [facility] to fax pasrr results for pt.
--- NOTE | 2017-02-01 15:56 | NUR ---
PT again stated "i dont believe so" when AT encouraged PT to join group this afternoon. Again AT pointed out the benifits of coming to group and staying out of bed but PT still refused
--- NOTE | 2017-02-01 18:24 | NUR ---
jovanny received call back from referral to [facility]. Torsten reports that Facility does not accpet pts on psych meds then discontinue them. [place] has no shelter care beds.
--- NOTE | 2017-02-01 19:22 | NUR ---
SW RECEIVED CALL BACK FROM BEV Nunez [facility]. INFORMATION WAS GIVEN FOR AL REFERRAL TO CALL [facility] ([phone]) FOR INTAKE APPOINTMENT. BEV COULD NOT GIVE NAMES OF HOMES IN AREA FOR SW TO TRY FOR PLACEMENT DUE TO BEING NEW.
[2017-02-01 20:00] VITALS: BP 123/62
--- NOTE | 2017-02-01 21:19 | NUR ---
Hep Lock discontinued. Site asymptomatic. Pressure applied. Sterile dressing applied. ANA MORALES
--- NOTE | 2017-02-01 21:52 | NUR ---
P-1 PSYCHOTIC DISORDER I- EXPLAIN ALL MEDICATIONS, TEACH COPING SKILLS, PROVIDE EMOTIONAL SUPPORT, HAVE CLIENT DISCUSS FEARS AND THOUGHTS. DISCUSS PROPER DIET P- MEDICATION COMPLIANT, MAKE GOOD FOOD CHOICES, ENGAGE IN ACTIVITIES WITH OTHERS, USE COPING TECHNIQUES WHEN NEEDED
--- NOTE | 2017-02-01 22:00 | NUR ---
ISOLATIVE TO ROOM EXCEPT FOR SNACK. MEDICATION COMPLIANT. GUARDED BUT INTERACTIVE WITH STAFF. USES WHEELCHAIR TO MOVE SELF AROUND UNIT
--- NOTE | 2017-02-02 00:08 | NUR ---
RESTING WELL SINCE MEDICATION PASS. MOVING SELF IN BED. HOB UP AT THIS TIME. WILL CONTINUE TO MONITOR
--- NOTE | 2017-02-02 02:23 | NUR ---
24 HR chart check completed.
--- NOTE | 2017-02-02 06:45 | NUR ---
EASILY AWAKENED BUT NOT SOCIAL. BSG DONE. CLIENT WENT BACK TO SLEEP.
--- NOTE | 2017-02-02 07:15 | NUR ---
CALLED TO FLOOR. PHYSICAL THERAPY WITH CLIENT, CLIENT DIAPHORETIC, ASHEN, UNRESPONSIVE. INCONTINENT OF URINE. SNORUS RESPIRATION WHEN PLACED IN CHAIR. CLIENT CAME AROUND AFTER A MINUTE IN CHAIR. RAPID RESPONSE CALLED AND ALL PERSONELL PRESENT. DR CAMILO NOTIFIED. MOTHER NOTIFIED. MOTHER STATES HE HAS NO SEIZURE HISTORY BUT 7-8 YEARS AGO THIS SAME THING HAPPENED AND HIS HEART STOPPED. AFTER RECESSITATION A PACEMAKER WAS INSTALLED. NO ISSUES SINCE
[2017-02-02] MEDS ORDERED: LATU120T PO ×2 (07:28→08:51)
[2017-02-02] MEDS ORDERED: ROZEREM8 MG PO (07:28)
[2017-02-02] MEDS ORDERED: INVEGA6 MG PO (07:28)
[2017-02-02] MEDS ORDERED: GEODON20 M1 IM (07:30)
[2017-02-02] MEDS ORDERED: K-TAB20 MEQ PO (08:52)
[2017-02-02] MEDS ORDERED: PHOS-NAK PACKE1 EACH PO (08:55)
[2017-02-02] MEDS ORDERED: BACTRIM 400-801 EACH PO (08:59)
[2017-02-02] MEDS ORDERED: AFREZZA SC (09:03)
--- NOTE | 2017-02-02 10:41 | NUR ---
PHYSICAL THERAPY [facility] this AM from [address] [place] [address], had a seizure Dr's were in. SEAN THEODORE COTTON FACTOR.
--- NOTE | 2017-02-02 11:26 | NUR ---
PHYSICAL THERAPY CO-SIGN I approve of the Phyical Therapy notes written above. SANDIP DORANTES PT
--- NOTE | 2017-02-02 18:21 | NUR ---
ISIS MADE REFERRALS TO aps IN [facility] FOR ASSISTANVE WITH [employer]IP AND TO [address] FOR ASSITED LIVING WAIVER. [facility] FAXEWD REFERRALS TO [facility] AND [facility].
--- NOTE | 2017-02-02 18:23 | NUR ---
SW REFAXED [facility] THAT WAS SUBMITTED ON 01-26-17 NTHAT WAS NOT RECEIVED.
--- NOTE | 2017-02-02 18:24 | NUR ---
SW MEET WITH FAMILY AND GAVE EXPERT EVAL WITH [facility] aps NUMBER FOR [facility] FOR ASSISTANCE WITH FILING [employer]IP.
--- NOTE | 2017-02-02 18:24 | NUR ---
PT WAS DISCHARGED TO MEDICAL UNIT.
== END 2017-02-02 07:20 | disposition short-term general hospital (02) | DRG 885 ==
LOC: 3N 12:42
PROVIDERS: Internal Medicine; Registered Nurse; ADMIT Psychiatry & Neurology Psychiatry
DX: F25.9 Schizoaffective disorder, unspecified (principal); N17.0 Acute kidney failure with tubular necrosis; G93.41 Metabolic encephalopathy; E44.0 Moderate protein-calorie malnutrition; F23 Brief psychotic disorder; E87.1 Hypo-osmolality and hyponatremia; I10 Essential (primary) hypertension; E78.5 Hyperlipidemia, unspecified; I25.10 Atherosclerotic heart disease of native coronary artery without angina pectoris; E03.9 Hypothyroidism, unspecified; I25.2 Old myocardial infarction; Z95.1 Presence of aortocoronary bypass graft; E78.00 Pure hypercholesterolemia, unspecified; E11.65 Type 2 diabetes mellitus with hyperglycemia; F22 Delusional disorders; E87.6 Hypokalemia; E83.42 Hypomagnesemia; E83.39 Other disorders of phosphorus metabolism; Z79.4 Long term (current) use of insulin; Z68.30 Body mass index [BMI] 30.0-30.9, adult

== ENCOUNTER 2017-02-02 07:33 | Inpatient (IN) | payer MEDICARE, MEDICAID ==
[~2017-02-02] VITALS: Ht 182.9 cm; Wt 112.2 kg
[2017-02-02] VITALS (7 sets, daily range): BP systolic 96–138; BP diastolic 47–75
--- NOTE | ~2017-02-02 | CON ---
[place], [place] REPORT OF CONSULTATION NAME: LIZBETH VELÁZQUEZ REDWOOD LLCT #: [id number] UNIT #: [id number] ROOM: [facility] DOCTOR: SUKUMAR CAMILO MD BIRTHDATE: [birth year] DOS: 02/03/2017 PSYCHIATRIC CONSULTATION CHIEF COMPLAINT: "I thought I was ready to leave until I had that episode that really scared me." HISTORY OF PRESENT ILLNESS: This is a 66-year-old white male with a history of schizoaffective disorder and initially presented to the [facility] due to significant mood lability, agitation and paranoia. He had been stabilized on a combination of Invega and Latuda and was improving gradually, almost to the point of being ready to be discharged when he did appear to have a grand mal seizure that resulted in a code to be called and he was subsequently admitted to the ICU. Per his report, he has had no further episodes and he is feeling well at this point in time. MENTAL STATUS EXAMINATION: This morning, the patient is alert and oriented with significant time gaps. His responses tended to be short and simple, at times he misunderstood what I was asking of him, but for the most part he was pleasant. He did not exhibit any hypomania or moisés. He did not exhibit any auditory or visual hallucinations. No delusions. No paranoia. Memory for short term events did have gaps. DIAGNOSIS: Schizoaffective disorder. PLAN: I will resume his Latuda, but at a much lower dose of only 40 mg at bedtime. I will not restart Invega. The patient does seem to be improved and we are leaning towards discharging him into a possible 30-day rehab or prison situation as he was not attending to his daily needs on a consistent basis. He does not need to be re-transported to the [facility] as his psychiatric symptoms have been under control with the medication regimen. SUKUMAR CAMILO MD CM:CONSTR:REPORT OF CONSULTATION [id number] 02/03/17 1024 interface
--- NOTE | ~2017-02-02 | PR ---
[place], [place] PROGRESS NOTE NAME: LIZBETH VELÁZQUEZ UNIT #: [id number] ROOM: 408 DOCTOR: SEBAS NGUYEN MD BIRTHDATE: [birth year] DOS: 02/04/2017 NEPHROLOGY PROGRESS NOTE SUBJECTIVE: The patient is without acute complaints; oral intake continues to be good. No complaints were reported. No further seizure activity noted. He is hopeful to go home. He says he follows up with a distributing clerk in the community where he lives near [place] and says his kidney function was around 40%. OBJECTIVE: VITAL SIGNS: Temperature 98.3, 90, 18, 152/69-137/83, pulse ox 99% on room air. GENERAL: He is awake, alert and oriented. He got a haircut by his mom. No acute distress. LUNGS: Clear to auscultation. CARDIOVASCULAR: Regular rate. No audible rub. ABDOMEN: Obese, soft, nontender. No rebound. No guarding. EXTREMITIES: Peripheries without significant cyanosis, clubbing or edema. SKIN: Without diffuse rashes or breakdown. NEUROLOGIC: Gross motor and sensory function is intact. LABORATORY DATA AND DIAGNOSTICS: White blood cell count 8.6, hemoglobin 14.1, platelets 225. Sodium 136, potassium 3.6, chloride 100, bicarbonate 23, BUN 20, creatinine 1.97, EGFR 34, glucose 316, calcium 8.7. CT head without contrast negative for intracranial bleed or stroke. Small leukoencephalopathy and encephalomalacia of the right parietal lobe was noted. Cultures are negative to date. ASSESSMENT AND PLAN: 1. Acute kidney injury versus chronic kidney disease. I suspect there is more chronic disease here than noted. He states his kidney function was about "40% by his other distributing clerk. He is not too far away from this level. He is eating and drinking well. Volume status appears acceptable. Continue to follow with his outpatient distributing clerk. He is stable for discharge from a renal standpoint. 2. Electrolytes and hypomagnesemia has improved. 3. Hypertension, acceptable control, continue oral medications and continue to follow up. [place], [place] PROGRESS NOTE NAME: LIZBETH VELÁZQUEZ UNIT #: [id number] ROOM: 408 DOCTOR: SEBAS NGUYEN MD BIRTHDATE: [birth year] SEBAS NGUYEN MD CM:RAHEEM [id number] SEBAS NGUYEN MD 02/04/17 1804 interface
--- NOTE | ~2017-02-02 | PR ---
[place], [place] PROGRESS NOTE NAME: LIZBETH [facility]ELÁZQUEZ [id number] UNIT #: [id number] ROOM: 408 DOCTOR: SEBAS NGUYEN MD BIRTHDATE: [birth year] DOS: 02/03/2017 SUBJECTIVE: The patient was seen in followup of acute versus chronic kidney disease with abnormal electrolytes, magnesium is improved to 1.9, creatinine also slightly improved with IV fluids. These IV fluids have been turned off. OBJECTIVE: VITAL SIGNS: Temperature 98.2, 81, 14, 137/77. GENERAL: Awake, alert, oriented, pleasant mood and affect. Speech is clear and cogent, bit disheveled appearing. LUNGS: Clear bilaterally, no audible rales or wheeze. CARDIOVASCULAR: Regular rate. No audible rub. ABDOMEN: Soft, nontender, obese, nondistended. EXTREMITIES: Without cyanosis, clubbing or significant edema. LABORATORY DATA AND DIAGNOSTICS: White blood cell count 9, stable. Hemoglobin 13.1, down slightly. Platelets 212, slightly down. Sodium 137, potassium 3.5, chloride 104, bicarbonate 24, BUN 20, creatinine 1.84, glucose 161, calcium 8.0, phosphorus 2.4, magnesium 1.9, albumin 2.8. Vitamin D 31.6. ASSESSMENT AND PLAN: Acute versus chronic kidney disease, seems more chronic in nature than anything, slight improvement with IV fluids, can stop IV fluids as oral intake seems acceptable. Hypomagnesemia is improved. Other electrolytes are stable. No further seizure episodes noted. Blood pressures are acceptable. Continue to follow. SEBAS NGUYEN MD CM:PNTRANS [id number] SEBAS NGUYEN MD 02/05/17 0016 interface
--- NOTE | ~2017-02-02 | CON ---
[place], [place] REPORT OF CONSULTATION NAME[id number] UNIT #: [id number] ROOM: 408 DOCTOR: SEBAS NGUYEN MD BIRTHDATE: [birth year] DOS: 02/02/2017 NEPHROLOGY CONSULTATION TIME OF SERVICE: 11:15 a.m. HISTORY OF PRESENT ILLNESS: The patient is a 66-year-old gentleman seen in renal consultation because of abnormal renal function studies and electrolyte abnormalities. He was transferred from the [facility] unit after reportedly becoming unresponsive, ashen and incontinent of urine. It was felt that he had a seizure and he was brought to the Intensive Care Unit. He had 1 vomitus episode and was reportedly postictal when he was evaluated in the ICU. At the time of my evaluation, the next morning, he was certainly much more alert and was appropriate in all facets. He had been down in the U for approximately 7-8 days prior to that. His laboratories while there had been checked. He had a mild hyponatremia on the with 133. It had improved to 137 yesterday and stable today. His creatinine was 2.17 on arrival and was down to as low as 1.63 on the and this morning was 1.98, stable from yesterday. In talking with him, he is from the [place] area and he does follow with a kidney doctor, he does not know the name. he is a limited historian in terms of reliability of details, but seems to be fairly coherent in terms of the pattern, timing of what he has been going through. He states that he went to the hospital near there and was kept overnight and transferred to the [facility] unit and was also having a questionable run in with law enforcement that prompted a lot of this as well. He thought he was more medically ill, but it was felt that he was more psychologically ill. He was trying to get home when he was noted to have these episodes this last night and was transferred to the acute hospital setting. REVIEW OF SYSTEMS: All systems were reviewed and negative except for as per HPI. Past medical, social and family history are reviewed from the admitting H and P and unchanged. PAST MEDICAL HISTORY: He does have a history of CKD, CAD, hypertension, hypothyroidism, hyperlipidemia, schizoaffective disorder, vitamin D deficiency and diabetes. He has a history of CABG in past, coronary stents and a pacemaker. SOCIAL HISTORY: He does not use tobacco, alcohol or drugs. FAMILY HISTORY: Negative for renal failure that he knows of. ALLERGIES: No known drug allergies. HOME MEDICATIONS: Reviewed from the electronic medical record. PHYSICAL EXAMINATION: VITAL SIGNS: Temperature 98.2, 82, 18, 138/75. [place], [place] REPORT OF CONSULTATION NAME: LIZBETH VELÁZQUEZ UNIT #: [id number] ROOM: [facility] DOCTOR: SEBAS NGUYEN MD BIRTHDATE: [birth year] GENERAL: Awake, alert and oriented, in no acute distress. No postictal state, no tremors, no asterixis noted. HEENT: Extraocular muscles are intact. Sclerae are anicteric. Oropharynx is clear. Mucous membranes are moist. NECK: No JVD or lymphadenopathy. LUNGS: Clear bilaterally. No audible rales, rhonchi or wheeze. CARDIOVASCULAR: Rate regular. No audible rub. No palpable lift or heave. ABDOMEN: Soft, obese, nontender. No rebound. No guarding. No palpable masses or abdominal bruits. EXTREMITIES: Lower extremities without cyanosis, clubbing or edema of significance. LABORATORIES AND DIAGNOSTICS: White blood cell count 9.8, hemoglobin 14.4, platelets 235. Sodium 137, potassium 3.5, chloride 102, bicarbonate 22, BUN 22, creatinine 1.98, EGFR 34, glucose 218, lactic acid 2.7, calcium 8.4, phosphorus 2.8, magnesium 1.2, albumin 3.0. TSH 7.26. Urinalysis, clear yellow urine, negative for protein, blood or ketones, 2+ glucose. ASSESSMENT AND PLAN: 1. Acute kidney injury on possible chronic kidney disease 3. Overall, he had seen a metal model builder in the past and he likely has chronic kidney disease. The possibility of some acute kidney injury given the fluctuations in the last weeks creatinine levels being as low as 1.63 and as high as 2 may be possible here, but overall he seems to be stable near this level in the last couple of days. Gentle IV fluids have been started. We will continue to monitor on this for right now. From electrolyte standpoint, does not have significant abnormalities of his electrolytes. He has hypomagnesemia, which can be replaced. In addition to the 2 grams, we will give another 2 grams today and follow up levels. In regards to his volume and hypertension, his blood pressures are acceptable, monitor his blood pressures with IV fluids and hopefully he can stop the IV fluids after another 12-24 hours. SEBAS NGUYEN MD CM:CONSTR:REPORT OF CONSULTATION 1532 02/04/172055 interface
--- NOTE | 2017-02-02 07:30 | NUR ---
A 66, admitted to ICCU, under the services of TITO Galindo DO with a diagnosis of SEIZURE. Chief complaint is PT WAS FOUND TO BE HAVING A SEIZURE ON U AND RAPID RESPONSE WAS CALLED.. Patient [place]. Monitor applied. Initial assessment completed. Vital signs taken and recorded. TITO GALINDO DO notified of admission to the unit. Orders received. See assessment for past medical history, medications and allergies. Patient and/or family oriented to unit. [facility] EDU visitation policy reviewed. Clothing/patient valuable form completed. NATHAN BEAVERS
[~2017-02-02 07:33] MED LIST: GEODON20 M1 IM; INVEGA6 MG PO; LATU120T PO; LEVOTHYROXINE100 MC1 PO; LIPITOR80 MG PO; LOPRESSOR100 M1 PO; METFORMIN500 MG PO; PLAVIX75 M1 PO; POLY-IRON 150150 MG PO; ROZEREM8 MG PO; SEROQUEL25 MG PO; TRAD5TAB1 PO; TRAZODONE50 MG PO; VITAMIN D2400 UNIT PO; WELLBUTRIN XL300 MG PO
[2017-02-02 07:59] LABS: BASO # 0.1 10*3/uL (0.0-0.1); EOS # 0.5 10*3/uL (0.0-0.4); EOS % 4.7 % (1.0-4.0); HEMATOCRIT 42.4 % (42.0-52.0); HEMOGLOBIN 14.4 g/dl (14.0-18.0); LYMPH # 2.8 10*3/uL (1.3-4.4); LYMPH % 28.8 % (27.0-41.0); MEAN CELL VOLUME 89.6 fl (80.0-94.0); MEAN CORPUSCULAR HGB 30.4 pg (27.0-31.0); MEAN PLATELET VOLUME 10.7 fl (9.6-12.3); MONO # 0.9 10*3/uL (0.1-1.0); MONO % 9.5 % (3.0-9.0); NEUT # 5.4 10*3/uL (2.3-7.9); NEUT % 55.5 % (47.0-73.0); PLATELET COUNT AUTOMATED 235 10*3/uL (130-400); RED BLOOD COUNT 4.73 10*6/uL (4.50-5.90); RED CELL DISTRI WIDTH 12.2 % (0-14.5); WHITE BLOOD COUNT 9.8 10*3/uL (4.8-10.8)
[2017-02-02 08:07] LABS: ACT PARTIAL THROMBO TIME 24.2 SECONDS (20.8-31.5)
[2017-02-02 08:14] LABS: CREATININE 1.98 mg/dL (0.70-1.30); MAGNESIUM 1.2 mg/dL (1.5-2.1); PHOSPHOROUS 2.8 mg/dL (2.5-4.9); POTASSIUM 3.5 mmol/L (3.5-5.1); TOTAL PROTEIN 6.7 gm/dL (6.4-8.2)
[2017-02-02 08:17] LABS: CKMB 0.7 ng/ml (0.5-3.6); CPK 49 U/L (39-308)
[2017-02-02 08:21] LABS: TROPONIN I < 0.015 ng/ml (<0.045)
[2017-02-02 08:23] LABS: THYROID STIM HORMONE (HS) 7.26 uIU/ml (0.358-4.75)
--- NOTE | 2017-02-02 08:31 | NUR ---
PT MEDICATED WITH ZOFRAN FOR NAUSEA AND VOMITING.
[2017-02-02] MEDS ORDERED: LATU120T PO (08:51)
[2017-02-02] MEDS ORDERED: K-TAB20 MEQ PO (08:52)
[2017-02-02] MEDS ORDERED: PHOS-NAK PACKE1 EACH PO (08:55)
[2017-02-02] MEDS ORDERED: BACTRIM 400-801 EACH PO (08:59)
[2017-02-02] MEDS ORDERED: AFREZZA SC (09:03)
--- NOTE | 2017-02-02 09:14 | NUR ---
Dr. Coughlin in to see pt and aware of pt's bp of 96 systolic. Order for iv bolus of 1l received.
--- NOTE | 2017-02-02 10:01 | NUR ---
I MADE DR CAMILO AWARE THAT HE IS CONSULTED FOR PSYCH MANAGEMENT.
--- NOTE | 2017-02-02 10:23 | NUR ---
DR NGUYEN'S OFFICE MADE AWARE OF NEW CONSULT ORDER AND STATED THEY WILL NOTIFY HIM.
--- NOTE | 2017-02-02 10:26 | NUR ---
PT MUCH MORE AWAKE AND CONVERSIVE AT THIS TIME. ALERT TO PERSON AND PLACE. KEEPS ASKING ME FOR A PHONE BOOK SO THAT HE CAN NOTIFY [facility] OF HIS WISHES IN CASE HE DIES TODAY. I TALKED WITH PT AND SPOKE WITH HIS MOTHER ALSO, WHO STATED SHE WILL TRY TO COME SEE HIM THIS AFTERNOON.
--- NOTE | 2017-02-02 10:31 | NUR ---
I SPOKE WITH DR NGUYEN ABOUT NEW CONSULT. NEW ORDER RECEIVED FOR LAB WORK IN THE AM AND ANOTHER MAG 2GM TO BE GIVEN TODAY.
[2017-02-02 10:43] LABS: CKMB 0.9 ng/ml (0.5-3.6); CPK 53 U/L (39-308)
[2017-02-02 10:44] LABS: TROPONIN I < 0.015 ng/ml (<0.045)
[2017-02-02 11:13] LABS: BILIRUBIN NEGATIVE (NEGATIVE); BLOOD NEGATIVE (NEGATIVE); CLARITY CLEAR (CLEAR); COLOR YELLOW (YELLOW); GLUCOSE 2+ (NEGATIVE); KETONE NEGATIVE (NEGATIVE); LEUKO ESTERASE NEGATIVE (NEGATIVE); NITRITE NEGATIVE (NEGATIVE); PH 5.5 (5.0-9.0); UROBILINOGEN 0.2 E.U./dl (0.2-1.0)
[2017-02-02 11:22] LABS: RBC 0-2 rbc/hpf (0-2)
--- NOTE | 2017-02-02 11:23 | NUR ---
DR NGUYEN IN TO SEE PT.
--- NOTE | 2017-02-02 12:20 | NUR ---
I SPOKE WITH A REP FROM [facility] AND SHE STATED THEY WOULD BE IN LATER TODAY TO INTERROGATE THE PT'S PACEMAKER.
--- NOTE | 2017-02-02 13:41 | NUR ---
KWASI RODRIGUEZ FROM [employer] HERE TO INTERROGATE PT'S PACEMAKER.
[2017-02-02 14:14] LABS: CPK 59 U/L (39-308); TROPONIN I < 0.015 ng/ml (<0.045)
--- NOTE | 2017-02-02 19:04 | NUR ---
Shift chart check completed.24 HR chart check completed.
--- NOTE | 2017-02-02 20:57 | NUR ---
PT "MISSED" HIS URINAL. HE BATHED AND UP IN CHAIR, WATCHING TV.
--- NOTE | 2017-02-02 22:36 | NUR ---
PT AGAIN "MISSED" THE URINAL. ASKED HIM TO LET ME HELP HIM NEXT TIME.
--- NOTE | 2017-02-02 23:42 | NUR ---
PT ASSISTED TO WALK INTO THE BATHROOM TO VOID. GAIT STEADY.
[2017-02-03] VITALS: BP 134/71
[2017-02-03 04:00] VITALS: BP 135/60
--- NOTE | 2017-02-03 04:07 | NUR ---
ASSISTED PT TO AMBULATE TO THE BATHROOM TO VOID.
--- NOTE | 2017-02-03 05:46 | NUR ---
PT HAS BEEN SLEEPING AT LONG INTERVALS. NO DYSRHYTHMIAS, NO RESP DISTRESS, NO SEIZURE ACTIVITY.
[2017-02-03 06:12] LABS: BASO # 0.1 10*3/uL (0.0-0.1); BASO % 0.9 % (0.0-1.0); EOS # 0.4 10*3/uL (0.0-0.4); EOS % 4.3 % (1.0-4.0); HEMATOCRIT 38.7 % (42.0-52.0); HEMOGLOBIN 13.1 g/dl (14.0-18.0); LYMPH # 2.8 10*3/uL (1.3-4.4); LYMPH % 30.7 % (27.0-41.0); MEAN CELL VOLUME 89.8 fl (80.0-94.0); MEAN CORPUSCULAR HGB 30.4 pg (27.0-31.0); MEAN CORPUSCULAR HGB CONC 33.9 g/dl (33.0-37.0); MEAN PLATELET VOLUME 11.2 fl (9.6-12.3); MONO # 0.8 10*3/uL (0.1-1.0); MONO % 8.8 % (3.0-9.0); NEUT # 4.9 10*3/uL (2.3-7.9); NEUT % 54.7 % (47.0-73.0); PLATELET COUNT AUTOMATED 212 10*3/uL (130-400); RED BLOOD COUNT 4.31 10*6/uL (4.50-5.90); RED CELL DISTRI WIDTH 12.2 % (0-14.5)
[2017-02-03 06:43] LABS: ALBUMIN 2.8 gm/dl (3.1-4.5); CREATININE 1.84 mg/dL (0.70-1.30); MAGNESIUM 1.9 mg/dL (1.5-2.1); PHOSPHOROUS 2.4 mg/dL (2.5-4.9); POTASSIUM 3.5 mmol/L (3.5-5.1)
[2017-02-03 07:08] LABS: VITAMIN D, 25-HYDROXY 31.6 ng/mL (30-100)
[2017-02-03 08:00] VITALS: BP 137/77
--- NOTE | 2017-02-03 09:57 | NUR ---
DR CAMILO IN TO SEE PT.
[2017-02-03 12:00] VITALS: BP 139/76
--- NOTE | 2017-02-03 12:27 | NUR ---
PT HAS BEEN DC. MOTHER ON PHONE WITH NURSE AND STATES MANA PROMISED PT WOULD BE PLACED IN REHAB. DOES NOT WANT HIM DC TO HOME. I SPOKE WITH RYNE MERIDA GUARDIANSHIP PAPERS ARE NOT COMPLETE. RYNE SAYS IF PT IS COMPETANT AND HAS NO GUARDIAN, HE CAN LEAVE WHEN HE WANTS. WE CANNOT KEEP HIM. THIS EXPLAINED TO MOTHER. MOTHER STATES SHE HAS PAPER WRITTEN BY LEATHA ALVARADO ON 01-31-17 THAT PT NEEDS 24H HOUR A DAY ASSISTANCE. BUT PT IS NOT DEEMED INCOMPETANT. MOM SAYS IF PT LEAVES, HE WILL HAVE TO WALK HOME NONE OF HIS FAMILY WILL COME GET HIM. DOCTOR HAS DECIDED TO CANCEL DC AND KEEP ANOTHER NIGHT. MOTHER AWARE. BUT ALSO INFORMED IF PT DECIDES HE DOESNT WANT TO STAY, WE CANT KEEP HIM AGAINST HIS WILL. TECHNOLOGY TRAINER FROM [facility] SHOULD BE BACK IN AROUND 230.
--- NOTE | 2017-02-03 14:26 | NUR ---
REPORT GIVEN TO INPT RN AND PT TRANSFERED TO 408-2 AT THIS TIME.
[2017-02-03 16:00] VITALS: BP 157/66
--- NOTE | 2017-02-03 17:58 | NUR ---
SW RECEIVED CALL FROM [facility] TUESDAY ALANIS TO DO ASSESSMENT FOR PLACEMENT AT THEIR FACILITY.
--- NOTE | 2017-02-03 17:59 | NUR ---
ISIS SPOKE WITH MOTHER/POA LISET ABOUT PLACMENT CONCERNS AND DISCHARGE. LISET VISITED [facility] AND HOPES PT IS ACCPTED THERE. ISIS INFORMED ERIN THAT ALSO [facility] IS SENDING NO TO ASSESS PT FOR PLACEMENT THERE. PASRR NOT BACK YET. PT WAS DEEMED INCOMPOTENT BBY DR. ALVARADO. EXPERT EVAL WAS GIVEN TO MOTHER/POA Liset TO FILE FOR LEGAL GUARDIANSHIP [facility] [address] [facility].
[2017-02-03 20:00] VITALS: BP 137/83
--- NOTE | 2017-02-03 20:00 | NUR ---
SITTING UP IN CHAIR IN ROOM. ALERT & ORIENTED. HEP LOCK INTACT TO LEFT HAND; SITE ASYMPTOMATIC. PT. VOICES NO C/O AT THIS TIME. NO DISTRESS NOTED. CALL LIGHT WITHIN REACH.
--- NOTE | 2017-02-03 22:00 | NUR ---
BLOOD SUGAR 285; COVERAGE GIVEN PER EMAR.
[2017-02-04] VITALS: BP 152/64
--- NOTE | 2017-02-04 02:30 | NUR ---
PT. C/O STOMACH HURTING; REFUSES ZOFRAN. PA'S GAVE PATIENT A BATH AT THIS TIME & LINENS CHANGED.
--- NOTE | 2017-02-04 04:30 | NUR ---
RESTING IN BED WITH EYES CLOSED. CALL LIGHT WITHIN REACH.
[2017-02-04 05:56] LABS: CREATININE 1.97 mg/dL (0.70-1.30); POTASSIUM 3.6 mmol/L (3.5-5.1)
--- NOTE | 2017-02-04 06:00 | NUR ---
PT. STATES THAT HIS STOMACH IS UPSET. ASKED PATIENT IF HE WOULD LIKE MEDICATINO FOR THE NAUSEA & VOMITING. PT. REFUSES MEDICATION.
[2017-02-04 06:05] LABS: BASO # 0.1 10*3/uL (0.0-0.1); BASO % 0.7 % (0.0-1.0); EOS # 0.2 10*3/uL (0.0-0.4); EOS % 2.1 % (1.0-4.0); HEMATOCRIT 42.2 % (42.0-52.0); HEMOGLOBIN 14.1 g/dl (14.0-18.0); LYMPH # 1.5 10*3/uL (1.3-4.4); LYMPH % 17.7 % (27.0-41.0); MEAN CELL VOLUME 90.4 fl (80.0-94.0); MEAN CORPUSCULAR HGB 30.2 pg (27.0-31.0); MEAN CORPUSCULAR HGB CONC 33.4 g/dl (33.0-37.0); MONO # 0.7 10*3/uL (0.1-1.0); NEUT # 6.1 10*3/uL (2.3-7.9); NEUT % 70.9 % (47.0-73.0); PLATELET COUNT AUTOMATED 225 10*3/uL (130-400); RED BLOOD COUNT 4.67 10*6/uL (4.50-5.90); RED CELL DISTRI WIDTH 12.1 % (0-14.5); WHITE BLOOD COUNT 8.6 10*3/uL (4.8-10.8)
[2017-02-04 08:00] VITALS: BP 155/78
--- NOTE | 2017-02-04 08:00 | NUR ---
ISIS received call from HÉCTOR King regarding referral for Assisted Living Waiver. Christine stated that assessment cannot be done until Pt returns to [facility]. IISS understands that but needed to have referral in place so that when Pt is done with skilled stay then Pt can transition to Assisted Living per POA/Mother Bernie's request.
--- NOTE | 2017-02-04 11:26 | NUR ---
ISIS spoke with [facility] - Rose Mary Agustin. Updated information faxed to [facility]. Rose Mary will give it to medical for review. Rose Mary is in charge of Assisted Living. ISIS informed Rose Mary that Pt needs to be dicharged today. MANAS is back and approved for [facility] stay. Rose Mary will let ISIS know if they are accepting Pt.
--- NOTE | 2017-02-04 11:28 | NUR ---
ISIS recieved call from Geno Anne. SHe is on her way to assess Pt. will arrive around noon.
[2017-02-04 12:00] VITALS: BP 152/69
--- NOTE | 2017-02-04 12:44 | NUR ---
ISIS introduced Dayana Sifuentes to Pt for assessment for placement. Pt stated that facility was close enought to home that he could snuck out at night. Dayana is concerned about elopeent risk now. Dayana mariano discuss with facility admission team and call SW with an answer of accepteance or denial.
--- NOTE | 2017-02-04 14:34 | NUR ---
SPOKE WITH PATIENTS MOTHER AND INFORMED HER THAT THE PATIENT MAY BE EXCEPTED [facility] TODAY AND CAN GO TODAY. SHE VOICED CONCERN THAT IT WAS 2 HOURS AWAY AND THE PATIENT WOULD HAVE NO TRANSPORTATION AND ALSO THAT SHE WAS UNDER THE IMPRESSION THEY WOULD NOT BE READY FOR HIM TO COME UNTIL Mar. I ATTEMPTED TO CALL ANNALISE FLORIAN, THE AUTOMOBILE WRECKER, AND SHE IS TO RETURN MY CALL.
[2017-02-04] MEDS ORDERED: LATU40TA PO (15:37)
--- NOTE | 2017-02-04 15:38 | NUR ---
PHYSICAL THERAPY PAtient evaluated on 4, full evaluation to follow. Continue with PT as per plan of care with fall and acute debility precautions. Significant balance dysfunction with mobility, may require SNF. PAtient is moderate complexity via chart review, tests and evalaution: [id number]. Thank you for this referral. Kenzie Luz,PT
[2017-02-04 16:00] VITALS: BP 158/67
--- NOTE | 2017-02-04 17:17 | NUR ---
[facility] DISCONTINUED. DISCHARGE PACKET DONE. REPORT GIVEN TO RECIEVING FACILITY.
--- NOTE | 2017-02-04 17:49 | NUR ---
ISIS SPOKRE WITH MOTHER TO INFORM THAT [facility] WAS REVIEWEING INFORMATION FOR [place] [facility] AND JAMAL WAS GOING TO ASSESS PT. SW WILL CALL TO INFORM WHICH FACILITY PT WILL BE GOING TO THIS EVENING.
--- NOTE | 2017-02-04 17:50 | NUR ---
SW RECVEIVED CALL FROM [facility] THAT THEY WILL ACCPET PT. SW WILL ARRANGE DISCHARGE TRANSPORTATION AROUND 4:30PM.
--- NOTE | 2017-02-04 17:51 | NUR ---
ISIS NOTIFIED NURSE AUGUST THAT PT [place] ACCEPTED AT [facility] IN [place]. AUGUST WILL GET DICHARGE ORDER FROM . ISIS WILL TRY TO ARRANGE TRANSPORATIO AROUND [id number]. ISIS GAVE FACILITY INFORMATION TO AUGUST.
--- NOTE | 2017-02-04 17:52 | NUR ---
ISIS SPOKE WITH YOLIE MENDOZA TO ARRANGE TRAMSPORATION TO [facility]. ABLE TO CORDUROY CUTTER OPERATOR 2 6PM.
--- NOTE | 2017-02-04 17:53 | NUR ---
ISIS SPOKE WITH [facility] TO NOTIFY OF LATER TIME. FLORENCE REQUESTED INFORMATIO BE FAXED TO FRONT NURSE #[phone]. ISIS INFROMED AUGUST TO GIVE [id number] TO FRONT NURSE.
--- NOTE | 2017-02-04 17:55 | NUR ---
ISIS NOTIFIED MOTHER/POA THAT PT WAS BEING DISCHRGE TO [facility] AROUND 6PM. MOTHER WILL MEET HIM AT FACILITY. FAMILY BOUGHT PT NEW CLOTHES. LISET BAHENAED [facility] FOR HER HELP.
--- NOTE | 2017-02-04 17:55 | NUR ---
Discharge instructions reviewed with patient/family. Patient receptive and verbalizes understanding. Follow-up care arranged. Written instructions given to patient/family. PT TRANSPORTED TO [facility]. AUGUST PATRICK
--- NOTE | 2017-02-04 17:57 | NUR ---
SW LEFT VM FOR pp CM Leonardo [facility] 9 THAT PT WAS BEIG DISCHARGED TO [facility] AND TO ARRANGE ASSESSMENT FOR ASSISTED LIVING WAIVER.
== END 2017-02-04 17:55 | DRG 100 ==
LOC: ICCU 07:33 → 4E 02-03 14:18
PROVIDERS: Family Medicine; Internal Medicine Hospice and Palliative Medicine; ADMIT Internal Medicine
DX: R56.9 Unspecified convulsions (principal); G93.41 Metabolic encephalopathy; N17.0 Acute kidney failure with tubular necrosis; E44.0 Moderate protein-calorie malnutrition; E87.1 Hypo-osmolality and hyponatremia; E83.42 Hypomagnesemia; N18.9 Chronic kidney disease, unspecified; E87.6 Hypokalemia; E83.39 Other disorders of phosphorus metabolism; E03.9 Hypothyroidism, unspecified; F32.9 Major depressive disorder, single episode, unspecified; F25.9 Schizoaffective disorder, unspecified; I25.10 Atherosclerotic heart disease of native coronary artery without angina pectoris; E78.2 Mixed hyperlipidemia; E11.65 Type 2 diabetes mellitus with hyperglycemia; E11.22 Type 2 diabetes mellitus with diabetic chronic kidney disease; I12.9 Hypertensive chronic kidney disease with stage 1 through stage 4 chronic kidney disease, or unspecified chronic kidney disease; Z68.30 Body mass index [BMI] 30.0-30.9, adult